=== PATIENT | male | born 1975 | race American Indian/Alaskan Native ===

== ENCOUNTER 2022-05-10 14:10 | Emergency (ER) | payer OTHER ==
[2022-05-10] MEDS ORDERED: Sodium Chloride 0.9% 10 ML Syringe FLUSH PRN (14:35)
[2022-05-10 15:31] LABS: ANION GAP 14.4 mEq/L (7-13); CHLORIDE,CL 104 mmol/L (98-107); SODIUM,NA 144 mmol/L (136-145)
[2022-05-10 15:33] LABS: ESTIMATED GFR 95 mL/min (>=60)
[2022-05-10] MEDS ORDERED: Ondansetron 4 MG/2 ML SDV IVPUSH ONE (15:38)
[2022-05-10] MEDS ORDERED: HYDROmorphone 0.5 MG/0.5 ML Syringe IVPUSH ONE (15:38)
[2022-05-10] MEDS: Iopamidol 612 MG/ML 100 ML Bottle IVPUSH ONE ×2 (15:40→16:16)
[2022-05-10 15:46] LABS: AMPHETAMINES,URINE NEGATIVE (NEGATIVE); BARBITURATES,URINE NEGATIVE (NEGATIVE); BENZODIAZEPINE,URINE POSITIVE (NEGATIVE); MDMA (ECSTASY), URINE NEGATIVE (NEGATIVE); METHADONE,URINE NEGATIVE (NEGATIVE); METHAMPHETAMINES,URINE NEGATIVE (NEGATIVE); OPIATES,URINE NEGATIVE (NEGATIVE); OXYCODONE,URINE NEGATIVE (NEGATIVE); PHENCYCLIDINE,URINE NEGATIVE (NEGATIVE); TCA,URINE NEGATIVE (NEGATIVE)
== END 2022-05-10 16:30 | disposition left against medical advice (07) ==
LOC: DL.ED 14:10
DX: U07.1 COVID-19 (principal); Z88.5 Allergy status to narcotic agent
CPT/HCPCS: 36415; 80053; 80305; 80307; 81001; 82140; 82150; 83605; 83690; 83735; 84443; 85025; 86140; 87040; 87635; 96374; 96375; 99284; J1170; J2405; J3490; Q9967; U0002

== ENCOUNTER 2022-05-11 12:17 | Emergency (ER) | payer OTHER | END 2022-05-11 13:10 | disposition left against medical advice (07) | LOC: DL.ED 12:17 | DX: Z53.21 Procedure and treatment not carried out due to patient leaving prior to being seen by health care provider (principal) ==

== ENCOUNTER 2022-05-12 06:15 | Inpatient (IN) | payer OTHER ==
[2022-05-12] MEDS ORDERED: Famotidine 20 MG/2 ML SDV IVPUSH ONE (07:06)
[2022-05-12] MEDS ORDERED: Ondansetron 4 MG/2 ML SDV IV ONE ×2 (07:06→10:04)
[2022-05-12] MEDS ORDERED: Sodium Chloride 0.9% 1,000 ML IV ONE (07:06)
[2022-05-12 07:08] LABS: ANION GAP 13.8 mEq/L (7-13)
[2022-05-12] MEDS ORDERED: Magnesium Sulfate/Water 2 GM in Premix Bag 1 BAG IV ONE ×4 (07:21)
[2022-05-12] MEDS ORDERED: Iopamidol 612 MG/ML 100 ML Bottle IVPUSH ONE (07:22)
[2022-05-12] MEDS ORDERED: NS with KCl 40mEq 1,000 ML IV SCH (07:30)
[2022-05-12] MEDS: Sodium Chloride 0.9% 10 ML Syringe FLUSH PRN ×2 (07:43→08:12)
[2022-05-12 07:49] LABS: AMPHETAMINES,URINE NEGATIVE (NEGATIVE); BARBITURATES,URINE NEGATIVE (NEGATIVE); BENZODIAZEPINE,URINE POSITIVE (NEGATIVE); MDMA (ECSTASY), URINE NEGATIVE (NEGATIVE); METHADONE,URINE NEGATIVE (NEGATIVE); METHAMPHETAMINES,URINE NEGATIVE (NEGATIVE); OPIATES,URINE NEGATIVE (NEGATIVE); OXYCODONE,URINE NEGATIVE (NEGATIVE); PHENCYCLIDINE,URINE NEGATIVE (NEGATIVE); TCA,URINE NEGATIVE (NEGATIVE)
[2022-05-12] MEDS ORDERED: MVI, Adult with Vitamin K 10 ML, Thiamine 100 MG, Folic Acid 1 MG in Lactated Ringers 1... IV ONE ×4 (10:05)
[2022-05-12] MEDS ORDERED: Sodium Chloride 0.9% 10 ML Syringe FLUSH PRN (10:25)
[2022-05-12] MEDS ORDERED: Ondansetron 4 MG/2 ML SDV IVPUSH PRN (10:28)
[2022-05-12] MEDS ORDERED: Ondansetron 4 MG Tab.DIS PO PRN (10:28)
[2022-05-12] MEDS ORDERED: Lactated Ringers 1,000 ML IV SCH (10:30)
[2022-05-12] MEDS: Morphine 2 MG/ML SYRINGE IVPUSH PRN ×2 (11:12→14:30)
[2022-05-12] MEDS ORDERED: LORazepam 0.5 MG Tab PO PRN (13:06)
[2022-05-12] MEDS ORDERED: Metoprolol Tartrate 25 MG Tab PO PRN (13:06)
[2022-05-12] MEDS ORDERED: LORazepam 2 MG/ML SDV IVPUSH ONE (13:07)
[2022-05-12] MEDS ORDERED: Heparin Sodium 5,000 Units/ML Vial SUBCUT SCH (14:00)
[2022-05-12] MEDS ORDERED: LORazepam 2 MG/ML SDV IV PRN (14:23)
[2022-05-12] MEDS ORDERED: Sodium Chloride 0.9% 10 ML Syringe FLUSH SCH (21:00)
[2022-05-12] MEDS ORDERED: Pantoprazole 40 MG Vial IVPUSH SCH (21:00)
== END 2022-05-12 16:45 | disposition left against medical advice (07) | DRG 640 ==
LOC: DL.ED 06:15 → DL.MS 10:24
PROVIDERS: ADMIT Hospitalist; ATTEND Hospitalist
DX: E83.42 Hypomagnesemia (principal); K85.20 Alcohol induced acute pancreatitis without necrosis or infection; F10.229 Alcohol dependence with intoxication, unspecified; E87.6 Hypokalemia; F10.10 Alcohol abuse, uncomplicated; E83.51 Hypocalcemia; Z20.822 Contact with and (suspected) exposure to COVID-19; Z88.5 Allergy status to narcotic agent; Z86.16 Personal history of COVID-19; Z90.49 Acquired absence of other specified parts of digestive tract
CPT/HCPCS: 36415; 74177; 80053; 80143; 80179; 80305; 80307; 81001; 82150; 83605; 83690; 83735; 85025; 87635; J2405 ×2; J3411; J3475 ×2; J3480; J3490 ×3; J7030; J7120; Q9967; J1644; J2060; J2270; U0002

== ENCOUNTER 2022-05-17 11:58 | Emergency (ER) | payer SELFPAY ==
[2022-05-17] MEDS: Ketorolac 30 MG/ML SDV IM ONE (12:46)
[2022-05-17] MEDS: Acetaminophen 500 MG Tab PO ONE (12:47)
== END 2022-05-17 12:50 | disposition home or self-care (01) ==
LOC: DL.ED 11:58
DX: R10.13 Epigastric pain (principal); Z88.5 Allergy status to narcotic agent; Z86.16 Personal history of COVID-19
CPT/HCPCS: 96372; 99282; 99283; A9270-GY; J1885

== ENCOUNTER 2022-05-18 02:05 | Emergency (ER) | payer SELFPAY ==
[2022-05-18] MEDS ORDERED: Pantoprazole 80 MG in Sodium Chloride 0.9% 100 ML IV ONE (02:37)
[2022-05-18] MEDS ORDERED: Ondansetron 4 MG/2 ML SDV IVPUSH ONE ×2 (02:37→06:32)
[2022-05-18] MEDS ORDERED: Octreotide 100 MCG in Sodium Chloride 0.9% 99 ML IV SCH (02:45)
[2022-05-18 03:00] LABS: AMPHETAMINES,URINE NEGATIVE (NEGATIVE); BARBITURATES,URINE NEGATIVE (NEGATIVE); BENZODIAZEPINE,URINE POSITIVE (NEGATIVE); MDMA (ECSTASY), URINE NEGATIVE (NEGATIVE); METHADONE,URINE NEGATIVE (NEGATIVE); METHAMPHETAMINES,URINE NEGATIVE (NEGATIVE); OPIATES,URINE NEGATIVE (NEGATIVE); OXYCODONE,URINE NEGATIVE (NEGATIVE); PHENCYCLIDINE,URINE NEGATIVE (NEGATIVE); TCA,URINE NEGATIVE (NEGATIVE)
[2022-05-18 03:01] LABS: ANION GAP 9.9 mEq/L (7-13); CHLORIDE,CL 104 mmol/L (98-107); SODIUM,NA 140 mmol/L (136-145)
[2022-05-18 03:12] LABS: ESTIMATED GFR 116 mL/min (>=60)
[2022-05-18] MEDS ORDERED: Magnesium Sulfate/Water 2 GM in Premix Bag 1 BAG IV ONE (03:28)
[2022-05-18] MEDS ORDERED: GI Cocktail Oral Solution 30 ML PO ONE (03:28)
[2022-05-18] MEDS ORDERED: LORazepam 2 MG/ML SDV ONE (03:50)
[2022-05-18] MEDS ORDERED: Metoclopramide 10 MG/2 ML SDV IVPUSH ONE (07:56)
== END 2022-05-18 12:30 | disposition other institution (70) ==
LOC: DL.ED 02:05
DX: F10.10 Alcohol abuse, uncomplicated (principal); Z88.5 Allergy status to narcotic agent; Z91.010 Allergy to peanuts; Z91.013 Allergy to seafood; Z86.16 Personal history of COVID-19; Z90.49 Acquired absence of other specified parts of digestive tract; Z20.822 Contact with and (suspected) exposure to COVID-19
CPT/HCPCS: 36415; 80053; 80305-QW; 80307; 81001; 82150; 83605; 83690; 83735; 83880; 85025; 85610; 86140; 96365; 96366; 96367; 96368; 96375; 96376; 99282; 99284-25; A9270-GY; C9113; J2060; J2354-JA; J2405; J2765; J3475; U0002